=== PATIENT | female | born 1965 | race African-American/Black ===

== ENCOUNTER 2017-11-15 11:07 | Emergency (ER) | payer MEDICAID, OTHER ==
[~2017-11-15] VITALS: Ht 167.6 cm; Wt 98.0 kg
[~2017-11-15 11:07] MED LIST: ALBU8.5H3 IH; BECL8.7A5 IH; CETI-290 PO; GABA-529 PO; LEVO200 PO; NAPR375T PO; OMEP20 PO; TRAZ-147 PO
[2017-11-15 11:33] LABS: GLUCOSE,POINT OF CARE 107 MG/DL (70-110)
[2017-11-15] MEDS ORDERED: BECL8.7A7 IH (11:34)
[2017-11-15] MEDS ORDERED: HYDR25TA PO (11:34)
[2017-11-15] MEDS ORDERED: GLIM2 PO (11:34)
[2017-11-15 12:27] LABS: INFLUENZA TYPE B NEGATIVE FOR TYPE B (NEGATIVE)
[2017-11-15 12:53] VITALS: BP 156/73
[2017-11-15] MEDS ORDERED: BENZONATATE 100 MG CAPSULE PO ONE (13:00)
== END 2017-11-15 13:56 | disposition home or self-care (01) ==
LOC: EMS 11:08
DX: B34.9 Viral infection, unspecified (principal); J45.909 Unspecified asthma, uncomplicated; E03.9 Hypothyroidism, unspecified; E05.00 Thyrotoxicosis with diffuse goiter without thyrotoxic crisis or storm; Z79.899 Other long term (current) drug therapy; Z98.890 Other specified postprocedural states
CPT/HCPCS: 71020; 82962; 87804; 99285

== ENCOUNTER 2019-02-20 10:22 | Emergency (ER) | payer OTHER ==
[~2019-02-20] VITALS: Ht 167.6 cm; Wt 103.2 kg
[~2019-02-20 10:22] MED LIST changes: -BECL8.7A5 IH; +BECL8.7A7 IH; -CETI-290 PO; +CETI10TA59 PO; +GLIM2 PO; +HYDR25TA PO; -TRAZ-147 PO; +TRAZ-220 PO
[2019-02-20] MEDS ORDERED: GLIM2 PO (10:36)
[2019-02-20] MEDS ORDERED: HYDR25TA PO (10:36)
[2019-02-20] MEDS ORDERED: ESTR-95 PO (10:36)
[2019-02-20] MEDS ORDERED: HYDR-3110 PO (10:36)
[2019-02-20] MEDS ORDERED: CETI10TA59 PO (10:36)
[2019-02-20] MEDS ORDERED: LEVO25TA9 PO (10:36)
[2019-02-20] MEDS ORDERED: LISI1TAB9 PO (10:36)
[2019-02-20] MEDS ORDERED: ATOR40TA28 PO (10:36)
[2019-02-20] MEDS ORDERED: CROM10DR2 OU (10:36)
[2019-02-20] MEDS ORDERED: PREM3 PO (10:36)
[2019-02-20] MEDS ORDERED: GuaiFENesin/D-METHORPHAN [SUGAR-FREE] 200-20MG/10 ML SYRUP UDCUP PO ONE (12:30)
[2019-02-20] MEDS ORDERED: ALBUTEROL SULFATE 2.5 MG/0.5 ML NEB SOLUTION NEB ONE (12:30)
[2019-02-20] MEDS ORDERED: ACETAMINOPHEN 500 MG TABLET PO ONE (12:30)
[2019-02-20] MEDS ORDERED: KETOROLAC TROMETHAMINE 60 MG/2 ML VIAL IM ONE (12:30)
[2019-02-20] MEDS ORDERED: MethylPREDNISolone SOD SUCC 125 MG/2 ML VIAL IM ONE (12:30)
[2019-02-20] MEDS ORDERED: IPRATROPIUM BROMIDE 0.5 MG/2.5 ML NEB SOLUTION NEB ONE (12:30)
[2019-02-20] MEDS ORDERED: LEVO150 PO (12:35)
[2019-02-20 12:48] LABS: BASOPHILS % (AUTO) 0.3 % (0.0-2.0); EOSINOPHILS % (AUTO) 4.2 % (1.0-6.0); HEMATOCRIT 38.3 % (36-46); HEMOGLOBIN 12.4 g/dL (12.0-16.0); LYMPHOCYTES # (AUTO) 1.3 K/uL (1.0-4.8); LYMPHOCYTES % (AUTO) 30.2 % (22.0-44.0); MEAN CORPUSCULAR HEMOGLOBIN 27.9 pg (26.0-34.0); MEAN CORPUSCULAR HGB CONC 32.4 G/dL (31.0-37.0); MEAN CORPUSCULAR VOLUME 86 fL (80-100); MONOCYTES # (AUTO) 0.6 K/uL (0.1-1.0); MONOCYTES % (AUTO) 12.8 % (2.0-9.0); NEUTROPHILS # (AUTO) 2.3 K/uL (1.8-7.7); NEUTROPHILS % (AUTO) 52.5 % (40.0-70.0); PLATELET COUNT (AUTO) 163 K/uL (150-450); RED BLOOD CELL COUNT(AUTO) 4.45 MIL/uL (4.00-5.20); RED CELL DISTRIBUTION WIDTH 15.5 % (11.5-14.5)
[2019-02-20 12:57] LABS: ANION GAP 8 mmol/L (8-16); CALCIUM, TOTAL 8.8 mg/dL (8.8-10.5); CARBON DIOXIDE 27 mmol/L (22-29); CHLORIDE 105 mmol/L (98-107); CREATININE 1.06 mg/dL (0.60-1.30); GLOMERULAR FILTR. RATE CALC > 60 mL/min (>60); GLUCOSE,RANDOM 103 mg/dL (70-110); POTASSIUM 3.8 mmol/L (3.5-5.1); SODIUM SERUM 140 mmol/L (136-145); UREA NITROGEN, BLOOD 17 mg/dL (7-18)
[2019-02-20 13:03] LABS: ALANINE AMINOTRANSFERASE 25 U/L (12-78); ALBUMIN 3.8 g/dL (3.4-5.0); ALKALINE PHOSPHATASE 103 U/L (46-116); ASPARTATE AMINOTRANSFERASE 25 U/L (15-37); TOTAL PROTEIN, SERUM 7.1 g/dL (6.4-8.2)
[2019-02-20] MEDS ORDERED: 0.9% SODIUM CHLORIDE 5 ML NEB SOLUTION NEB ONE (13:43)
[2019-02-20 14:15] VITALS: BP 164/91
== END 2019-02-20 14:23 | disposition home or self-care (01) ==
LOC: EMS 10:22
DX: J18.9 Pneumonia, unspecified organism (principal); J44.1 Chronic obstructive pulmonary disease with (acute) exacerbation; E03.9 Hypothyroidism, unspecified; I50.9 Heart failure, unspecified; Z79.899 Other long term (current) drug therapy; Z88.5 Allergy status to narcotic agent
CPT/HCPCS: 36415; 71045; 80053; 84484; 85025; 94640; 96372; 99284; J1885; J2930

== ENCOUNTER 2021-08-14 09:10 | Emergency (ER) | payer OTHER ==
[~2021-08-14] VITALS: Ht 167.6 cm; Wt 79.0 kg
[~2021-08-14 09:10] MED LIST changes: +ATOR40TA28 PO; +CETI-450 PO; -CETI10TA59 PO; +CROM10DR2 OU; +ESTR-95 PO; -GABA-529 PO; +HYDR-3831 PO; -HYDR25TA PO; +HYDR25TA2 PO; +LEVO150 PO; -LEVO200 PO; +LISI1TAB9 PO; +PREM3 PO; -TRAZ-220 PO; +TRAZ-257 PO
[2021-08-14 10:21] VITALS: BP 151/79
== END 2021-08-14 10:31 | disposition home or self-care (01) ==
LOC: EMS 09:13
DX: S63.602A Unspecified sprain of left thumb, initial encounter (principal); I50.9 Heart failure, unspecified; J45.909 Unspecified asthma, uncomplicated; Z88.6 Allergy status to analgesic agent; Z88.8 Allergy status to other drugs, medicaments and biological substances; W19.XXXA Unspecified fall, initial encounter; Y93.89 Activity, other specified; Y92.89 Other specified places as the place of occurrence of the external cause; Y99.8 Other external cause status
CPT/HCPCS: 99283

== ENCOUNTER 2023-04-27 12:56 | Emergency (ER) | payer MEDICAID, OTHER ==
[~2023-04-27] VITALS: Ht 170.2 cm; Wt 87.3 kg
[~2023-04-27 12:56] MED LIST changes: -CROM10DR2 OU; -GLIM2 PO; +[UNRECOGNIZED DRUG - CODE] OU
[2023-04-27] MEDS ORDERED: KETOROLAC TROMETHAMINE 30 MG/ML VIAL IM ONE (14:15)
[2023-04-27 14:47] LABS: BASOPHILS % (AUTO) 0.4 % (0.0-2.0); EOSINOPHILS % (AUTO) 1.4 % (1.0-6.0); HEMATOCRIT 41.2 % (36-46); HEMOGLOBIN 13.5 g/dL (12.0-16.0); LYMPHOCYTES # (AUTO) 1.2 K/uL (1.0-4.8); LYMPHOCYTES % (AUTO) 30.1 % (22.0-44.0); MEAN CORPUSCULAR HGB CONC 32.8 G/dL (31.0-37.0); MEAN CORPUSCULAR VOLUME 94 fL (80-100); MONOCYTES # (AUTO) 0.4 K/uL (0.1-1.0); MONOCYTES % (AUTO) 10.3 % (2.0-9.0); NEUTROPHILS # (AUTO) 2.4 K/uL (1.8-7.7); NEUTROPHILS % (AUTO) 57.8 % (40.0-70.0); PLATELET COUNT (AUTO) 169 K/uL (150-450); RED BLOOD CELL COUNT(AUTO) 4.37 MIL/uL (4.00-5.20); RED CELL DISTRIBUTION WIDTH 13.6 % (11.5-14.5)
[2023-04-27 14:57] LABS: ANION GAP 6 mmol/L (8-16); CALCIUM, TOTAL 8.8 mg/dL (8.8-10.5); CARBON DIOXIDE 31 mmol/L (22-29); CHLORIDE 105 mmol/L (98-107); CREATININE 0.66 mg/dL (0.60-1.30); GLOMERULAR FILTR. RATE CALC > 60 mL/min (>60); GLUCOSE,RANDOM 93 mg/dL (70-110); POTASSIUM 3.7 mmol/L (3.5-5.1); SODIUM SERUM 142 mmol/L (136-145)
[2023-04-27 15:49] VITALS: BP 135/84
== END 2023-04-27 15:52 | disposition home or self-care (01) ==
LOC: EMS 12:56
DX: R07.1 Chest pain on breathing (principal); R00.1 Bradycardia, unspecified; J45.909 Unspecified asthma, uncomplicated; E03.9 Hypothyroidism, unspecified; E05.00 Thyrotoxicosis with diffuse goiter without thyrotoxic crisis or storm; I42.9 Cardiomyopathy, unspecified; Z90.89 Acquired absence of other organs; Z98.890 Other specified postprocedural states
CPT/HCPCS: 99285; 71045; 80048; 84484; 85025; 36415; 93005; 96372; J1885

== ENCOUNTER 2024-05-05 08:55 | Emergency (ER) | payer MEDICAID ==
[~2024-05-05] VITALS: Ht 170.2 cm; Wt 86.4 kg
[2024-05-05 09:01] VITALS: BP 143/71; PULSE 50; RESP 18; TEMP 98.4
[2024-05-05] MEDS ORDERED: IOHEXOL 350 MG/ML 100 ML VIAL ONE (09:39)
[2024-05-05] MEDS ORDERED: SODIUM CHLORIDE 0.9% 100 ML ONE (09:40)
[2024-05-05 09:44] LABS: ANION GAP 7 mmol/L (8-16); CARBON DIOXIDE 33 mmol/L (22-29); CHLORIDE 105 mmol/L (98-107); CREATININE 0.76 mg/dL (0.60-1.30); GLOMERULAR FILTR. RATE CALC > 60 mL/min (>60); GLUCOSE,RANDOM 94 mg/dL (70-110); POTASSIUM 3.8 mmol/L (3.5-5.1); SODIUM SERUM 145 mmol/L (136-145); UREA NITROGEN, BLOOD 11 mg/dL (7-18)
[2024-05-05 09:49] LABS: ALANINE AMINOTRANSFERASE 72 U/L (12-78); ALBUMIN 3.5 g/dL (3.4-5.0); ALKALINE PHOSPHATASE 89 U/L (46-116); ASPARTATE AMINOTRANSFERASE 42 U/L (15-37); BILIRUBIN,TOTAL 1.5 mg/dL (0.1-1.0); LIPASE 22 U/L (16-77); TOTAL PROTEIN, SERUM 6.9 g/dL (6.4-8.2)
[2024-05-05] MEDS: LIDOCAINE 5% TRANSDERMAL PATCH TD ONE (09:52)
[2024-05-05] MEDS: ACETAMINOPHEN 500 MG TABLET PO ONE (09:52)
[2024-05-05 10:05] LABS: BASOPHILS % (AUTO) 0.4 % (0.0-2.0); EOSINOPHILS % (AUTO) 1.3 % (1.0-6.0); HEMATOCRIT 39.9 % (36-46); HEMOGLOBIN 13.3 g/dL (12.0-16.0); LYMPHOCYTES # (AUTO) 1.6 K/uL (1.0-4.8); LYMPHOCYTES % (AUTO) 32.8 % (22.0-44.0); MEAN CORPUSCULAR HEMOGLOBIN 32.1 pg (26.0-34.0); MEAN CORPUSCULAR HGB CONC 33.3 G/dL (31.0-37.0); MEAN CORPUSCULAR VOLUME 97 fL (80-100); MONOCYTES # (AUTO) 0.6 K/uL (0.1-1.0); MONOCYTES % (AUTO) 11.3 % (2.0-9.0); NEUTROPHILS # (AUTO) 2.7 K/uL (1.8-7.7); NEUTROPHILS % (AUTO) 54.2 % (40.0-70.0); PLATELET COUNT (AUTO) 150 K/uL (150-450); RED BLOOD CELL COUNT(AUTO) 4.13 MIL/uL (4.00-5.20); WHITE BLOOD COUNT (AUTO) 4.9 K/uL (4.5-11.0)
[2024-05-05 10:36] LABS: APPEARANCE,URINE CLEAR (CLEAR); BILIRUBIN,URINE NEGATIVE (NEGATIVE); COLOR,URINE YELLOW (YELLOW); GLUCOSE, URINE (UA) NEGATIVE (NEGATIVE); KETONES,URINE NEGATIVE (NEGATIVE); LEUKOCYTE ESTERASE ,URINE SMALL (NEGATIVE); NITRATE,URINE NEGATIVE (NEGATIVE); OCCULT BLOOD,URINE NEGATIVE (NEGATIVE); PROTEIN,URINE NEGATIVE (NEGATIVE); SPECIFIC GRAVITIY, URINE 1.024 (1.003-1.030); UROBILINOGEN,URINE <=1.0 mg/dL (<=1.0)
[2024-05-05 11:00] LABS: BACTERIA,URINE None Seen /HPF (None Seen); RBC,URINE None Seen /HPF (0-2)
[2024-05-05 11:01] LABS: SQUAMOUS EPITHELIAL CELL,UR Few /LPF (None Seen)
[2024-05-05] MEDS ORDERED: LIDO700A15 TP (11:49)
== END 2024-05-05 12:06 | disposition home or self-care (01) ==
LOC: EMS 08:55
DX: R10.32 Left lower quadrant pain (principal); J45.909 Unspecified asthma, uncomplicated; Z88.5 Allergy status to narcotic agent; Z88.8 Allergy status to other drugs, medicaments and biological substances
CPT/HCPCS: 99285; 74177; 80048; 80076; 81001; 83690; 84703; 85025; 36415; Q9967; J7050

== ENCOUNTER 2024-12-04 09:40 | Emergency (ER) | payer MEDICAID ==
[~2024-12-04] VITALS: Ht 165.1 cm; Wt 87.3 kg
[~2024-12-04 09:40] MED LIST changes: -BECL8.7A7 IH; +DICY20TA95 PO; +FAMO20 PO; +FLUT1BLS19 IH; -HYDR-3831 PO; -HYDR25TA2 PO; +LIDO700A15 TP; +MONT-35 PO; -NAPR375T PO; -OMEP20 PO; -TRAZ-257 PO
[2024-12-04 10:52] LABS: BASOPHILS % (AUTO) 0.3 % (0.0-2.0); EOSINOPHILS % (AUTO) 0.4 % (1.0-6.0); HEMATOCRIT 40.1 % (36-46); HEMOGLOBIN 13.3 g/dL (12.0-16.0); LYMPHOCYTES # (AUTO) 0.7 K/uL (1.0-4.8); LYMPHOCYTES % (AUTO) 15.9 % (22.0-44.0); MEAN CORPUSCULAR HEMOGLOBIN 31.7 pg (26.0-34.0); MEAN CORPUSCULAR HGB CONC 33.3 G/dL (31.0-37.0); MEAN CORPUSCULAR VOLUME 95 fL (80-100); MONOCYTES # (AUTO) 0.7 K/uL (0.1-1.0); MONOCYTES % (AUTO) 15.9 % (2.0-9.0); NEUTROPHILS # (AUTO) 3.1 K/uL (1.8-7.7); NEUTROPHILS % (AUTO) 67.5 % (40.0-70.0); PLATELET COUNT (AUTO) 137 K/uL (150-450); RED BLOOD CELL COUNT(AUTO) 4.21 MIL/uL (4.00-5.20); RED CELL DISTRIBUTION WIDTH 13.5 % (11.5-14.5); WHITE BLOOD COUNT (AUTO) 4.7 K/uL (4.5-11.0)
[2024-12-04 11:00] LABS: ANION GAP 7 mmol/L (8-16); CALCIUM, TOTAL 8.5 mg/dL (8.8-10.5); CARBON DIOXIDE 31 mmol/L (22-29); CHLORIDE 105 mmol/L (98-107); CREATININE 0.82 mg/dL (0.60-1.30); GLOMERULAR FILTR. RATE CALC > 60 mL/min (>60); GLUCOSE,RANDOM 88 mg/dL (70-110); POTASSIUM 4.3 mmol/L (3.5-5.1); SODIUM SERUM 143 mmol/L (136-145); UREA NITROGEN, BLOOD 7 mg/dL (7-18)
[2024-12-04 11:08] LABS: APPEARANCE,URINE CLEAR (CLEAR); BILIRUBIN,URINE NEGATIVE (NEGATIVE); COLOR,URINE COLORLESS (YELLOW); GLUCOSE, URINE (UA) NEGATIVE (NEGATIVE); KETONES,URINE NEGATIVE (NEGATIVE); LEUKOCYTE ESTERASE ,URINE NEGATIVE (NEGATIVE); NITRATE,URINE NEGATIVE (NEGATIVE); OCCULT BLOOD,URINE NEGATIVE (NEGATIVE); PROTEIN,URINE NEGATIVE (NEGATIVE); SPECIFIC GRAVITIY, URINE 1.004 (1.003-1.030); UROBILINOGEN,URINE <=1.0 mg/dL (<=1.0)
[2024-12-04 11:09] LABS: TROPONIN I-HIGH SENSITIVITY 4 ng/L (<51)
[2024-12-04 11:10] LABS: COVID AG,FIA SOURCE NASAL SWAB
[2024-12-04 11:10] LABS: B-TYPE NATRIURETIC PEPTIDE 118 pg/mL (0-100)
[2024-12-04 11:48] LABS: INFLUENZA TYPE A NEGATIVE FOR TYPE A (NEGATIVE); INFLUENZA TYPE B NEGATIVE FOR TYPE B (NEGATIVE); SARS-COV2 (COVID) ANTIGEN,FIA Negative (Negative)
[2024-12-04] MEDS ORDERED: LISI10TA24 PO (12:22)
[2024-12-04] MEDS ORDERED: CHOL25TA4 PO (12:22)
[2024-12-04] MEDS ORDERED: FLUT16SP NASAL (12:22)
[2024-12-04] MEDS ORDERED: [UNRECOGNIZED DRUG - CODE] TD (12:22)
[2024-12-04] MEDS ORDERED: LEVO137T2 PO (12:22)
[2024-12-04] MEDS: PredniSONE 20 MG TABLET PO ONE (12:38)
[2024-12-04] MEDS: ACETAMINOPHEN 325 MG TABLET PO ONE (12:45)
[2024-12-04 12:55] VITALS: PULSE 55; RESP 16; TEMP 97.7; O2SAT 99
[2024-12-04] MEDS: IPRATROPIUM BROMIDE 0.5 MG/2.5 ML NEB SOLUTION NEB ONE (12:55)
[2024-12-04] MEDS: ALBUTEROL SULFATE 2.5 MG/0.5 ML NEB SOLUTION NEB ONE (12:55)
[2024-12-04 13:12] VITALS: PULSE 55; RESP 16; O2SAT 100
[2024-12-04] MEDS ORDERED: PRED-554 PO (13:51)
[2024-12-04] MEDS ORDERED: BENZ-227 PO ×2 (13:51→16:13)
[2024-12-04 14:11] VITALS: BP 137/79; PULSE 62; RESP 18; O2SAT 97
== END 2024-12-04 14:12 | disposition home or self-care (01) ==
LOC: EMS 09:51
DX: B34.9 Viral infection, unspecified (principal); J45.901 Unspecified asthma with (acute) exacerbation; E03.9 Hypothyroidism, unspecified; E78.00 Pure hypercholesterolemia, unspecified; I10 Essential (primary) hypertension; I42.9 Cardiomyopathy, unspecified; Z87.59 Personal history of other complications of pregnancy, childbirth and the puerperium; Z90.89 Acquired absence of other organs; Z88.5 Allergy status to narcotic agent; Z88.8 Allergy status to other drugs, medicaments and biological substances; Z20.822 Contact with and (suspected) exposure to COVID-19; Z98.890 Other specified postprocedural states
CPT/HCPCS: 99285; 71045; 87426; 80048; 81003; 83880; 84484; 85025; 87804; 36415; 94640; 93005; J7512; J7613